=== PATIENT | female | born 2000 | race Caucasian/White ===

== ENCOUNTER 2019-06-16 04:20 | Emergency (ER) | payer SELFPAY ==
[~2019-06-16] VITALS: Ht 154.9 cm; Wt 73.0 kg
[2019-06-16 04:25] VITALS: Ht 154.9 cm; Wt 73.0 kg
[2019-06-16 05:15] VITALS: BP 117/77
== END 2019-06-16 05:15 | disposition home or self-care (01) ==
LOC: ED 04:20
DX: S62.306A Unspecified fracture of fifth metacarpal bone, right hand, initial encounter for closed fracture (principal); W01.0XXA Fall on same level from slipping, tripping and stumbling without subsequent striking against object, initial encounter; Y93.89 Activity, other specified; Y92.89 Other specified places as the place of occurrence of the external cause; Y99.8 Other external cause status